=== PATIENT | male | born 1950 | race African-American/Black ===

== ENCOUNTER 2025-04-01 14:00 | Emergency (ER) | payer MEDICARE, MEDICAID ==
[~2025-04-01] VITALS: Ht 172.7 cm; Wt 86.0 kg
[2025-04-01 14:04] VITALS: O2SAT 97
[2025-04-01 14:20] VITALS: TEMP 36.8; O2SAT 96
[2025-04-01] MEDS: SODIUM CHLORIDE 0.9% 1,000 ML IV ONE (14:37)
[2025-04-01 14:45] VITALS: BP 134/58; PULSE 86; RESP 18
[2025-04-01] MEDS: ONDANSETRON HCL 4MG/2ML INJ IV STA (14:45)
[2025-04-01] MEDS: MORPHINE SULFATE 4 MG/ML INJ (FOR IV/IM USE) IV STA (14:45)
[2025-04-01 15:09] LABS: BASOPHILS % 1.1 % (0.0-2.0); EOSINOPHILS % 3.7 % (0.0-5.0); HEMATOCRIT. 37.2 % (42.0-52.0); HEMOGLOBIN. 13.1 g/dL (14.0-18.0); LYMPHOCYTES % 20.5 % (20.0-50.0); MEAN CORPUSCULAR HGB CONC 35.2 g/dL (31.0-37.0); MEAN CORPUSCULAR VOLUME 85.3 fL (80.0-94.0); MEAN PLATELET VOLUME 8.3 fl (7.4-10.4); MONOCYTES % 4.9 % (2.0-8.0); NEUTROPHILS % 69.8 % (40.0-76.0); PLATELET 288 x1000/uL (130-400); RED BLOOD CELL COUNT 4.36 mill/uL (4.7-6.1); RED CELL DISTRIBUTION WIDTH 15.4 % (11.6-14.6); WHITE BLOOD COUNT 9.4 x1000/uL (4.5-11.0)
[2025-04-01 15:19] LABS: POTASSIUM 3.7 mEq/L (3.5-5.1)
[2025-04-01 15:24] LABS: CREATININE 3.9 mg/dL (0.6-1.3)
== END 2025-04-01 15:30 | disposition left against medical advice (07) ==
LOC: ER 14:00
DX: M54.50 Low back pain, unspecified (principal); M54.2 Cervicalgia; E11.22 Type 2 diabetes mellitus with diabetic chronic kidney disease; E78.00 Pure hypercholesterolemia, unspecified; I12.0 Hypertensive chronic kidney disease with stage 5 chronic kidney disease or end stage renal disease; N18.6 End stage renal disease; Z99.2 Dependence on renal dialysis; Z79.899 Other long term (current) drug therapy; Z98.890 Other specified postprocedural states; V89.2XXA Person injured in unspecified motor-vehicle accident, traffic, initial encounter; Y93.89 Activity, other specified; Y92.89 Other specified places as the place of occurrence of the external cause; Y99.8 Other external cause status
CPT/HCPCS: 99284; 96374; 96375; 80048; 85025; 86850; 86900; 86901; 36415; J2405; J2270; J7030